=== PATIENT | female | born 1945 | race Caucasian/White ===

== ENCOUNTER → 2017-08-04 | Outpatient (CLI) | payer OTHER, MEDICAID | END | disposition home or self-care (01) | LOC: US 14:32 | PROC: B54DZZZ Ultrasonography of Bilateral Lower Extremity Veins (ICD-10-PCS; principal; 2017-08-04) | DX: M79.89 Other specified soft tissue disorders (principal) ==

== ENCOUNTER 2019-12-12 12:29 | Inpatient (IN) | payer OTHER, MEDICAID ==
[~2019-12-12] VITALS: Ht 165.1 cm; Wt 86.6 kg
[2019-12-12 12:44] VITALS: Ht 165.1 cm; Wt 86.6 kg
[2019-12-12 13:33] LABS: CALCIUM 8.3 mg/dL (8.5-10.1); CARBON DIOXIDE 30.5 mmol/L (21-32); CHLORIDE SERUM 102 mmol/L (98-107); CREATININE SERUM 0.9 mg/dL (0.6-1.0); GLUCOSE SERUM 191 mg/dL (74-106); POTASSIUM SERUM 3.9 mmol/L (3.5-5.1); SODIUM SERUM 140 mmol/L (136-145)
[2019-12-12 13:36] LABS: ALKALINE PHOSPHATASE 58 U/L (46-116); ALT/SGPT 16 U/L (14-59); AST/SGOT 13 U/L (15-37); BILIRUBIN TOTAL 0.4 mg/dL (0.20-1.00); TOTAL PROTEIN, SERUM 6.6 g/dL (6.4-8.2)
[2019-12-12 13:40] LABS: ALBUMIN 3.2 g/dL (3.4-5.0)
[2019-12-12] MEDS ORDERED: PRAVACHOL20 MG PO (13:43)
[2019-12-12] MEDS ORDERED: PRAVASTATIN SOD20 M1 PO (13:46)
[2019-12-12] MEDS ORDERED: CARVEDILOL ER40 MG PO (13:46)
[2019-12-12] MEDS ORDERED: FORTAMET500 M1 PO (13:46)
[2019-12-12] MEDS ORDERED: ZESTORETIC1 TAB PO (13:46)
[2019-12-12 13:58] LABS: PLATELET COUNT 217 x10^3mcL (130-400); RED CELL DISTRIBUTION WIDTH 12.8 % (11.5-14.5)
[2019-12-12 13:59] LABS: BASOPHIL % 0.5 % (0-2)
[2019-12-12 16:23] LABS: MAGNESIUM 1.8 mg/dL (1.8-2.4); PHOSPHOROUS 2.9 mg/dL (2.5-4.9)
[2019-12-12 16:26] LABS: CHOLESTEROL/HDL RATIO 3.4
[2019-12-12 16:30] LABS: FREE T4 0.88 ng/dL (0.76-1.46); FREE THYROXINE INDEX 2.2 ug/dL (1.4-4.5); T3 TOTAL 0.75 ng/mL; T4(THYROXINE) 6.8 ug/dL (4.7-13.3)
[2019-12-12 17:27] LABS: IRON 96 ug/dL (50-170); TOTAL IRON BINDING CAPACITY 283 ug/dL (250-450)
[2019-12-12 19:50] LABS: microscopic required? NO
[2019-12-12 20:10] LABS: urine erythrocyte NEGATIVE (NEGATIVE)
[2019-12-12 20:21] LABS: AMPHETAMINE QUAL UR NONE DETECTED (See below)
[2019-12-12 21:27] VITALS: BP 139/62
[2019-12-13 06:00] VITALS: BP 84/60
[2019-12-13 06:45] LABS: BASOPHIL % 0.6 % (0-2); PLATELET COUNT 183 x10^3mcL (130-400); RED CELL DISTRIBUTION WIDTH 13.2 % (11.5-14.5)
[2019-12-13 06:47] LABS: CALCIUM 7.8 mg/dL (8.5-10.1); CARBON DIOXIDE 30.2 mmol/L (21-32); CHLORIDE SERUM 105 mmol/L (98-107); CREATININE SERUM 0.9 mg/dL (0.6-1.0); GLUCOSE SERUM 156 mg/dL (74-106); PHOSPHOROUS 2.9 mg/dL (2.5-4.9); POTASSIUM SERUM 3.8 mmol/L (3.5-5.1); SODIUM SERUM 141 mmol/L (136-145)
[2019-12-13 08:42] VITALS: BP 104/65
[2019-12-13 12:23] VITALS: BP 102/58
[2019-12-13 16:12] VITALS: BP 101/52
[2019-12-13 20:29] VITALS: BP 106/54
[2019-12-14 05:35] VITALS: BP 133/78
[2019-12-14 06:56] LABS: BASOPHIL % 0.5 % (0-2); PLATELET COUNT 198 x10^3mcL (130-400); RED CELL DISTRIBUTION WIDTH 13.5 % (11.5-14.5)
[2019-12-14 07:43] LABS: CALCIUM 8.5 mg/dL (8.5-10.1); CARBON DIOXIDE 24.4 mmol/L (21-32); CHLORIDE SERUM 107 mmol/L (98-107); CREATININE SERUM 0.8 mg/dL (0.6-1.0); GLUCOSE SERUM 145 mg/dL (74-106); MAGNESIUM 2.4 mg/dL (1.8-2.4); PHOSPHOROUS 2.6 mg/dL (2.5-4.9); POTASSIUM SERUM 3.9 mmol/L (3.5-5.1); SODIUM SERUM 143 mmol/L (136-145)
[2019-12-14 09:18] VITALS: BP 124/63
[2019-12-14 14:00] VITALS: BP 120/63
[2019-12-14 16:51] VITALS: BP 126/56
[2019-12-14 19:37] VITALS: BP 126/56
== END 2019-12-14 21:03 | disposition short-term general hospital (02) | DRG 374 ==
LOC: ED 12:29 → DU 15:48
PROVIDERS: Emergency Medicine; Internal Medicine; Internal Medicine Gastroenterology; ADMIT Family Medicine; ATTEND Family Medicine
PROC: 0DB48ZX Excision of Esophagogastric Junction, Via Natural or Artificial Opening Endoscopic, Diagnostic (ICD-10-PCS; principal; 2019-12-13 09:00)
PROC: 0DJD8ZZ Inspection of Lower Intestinal Tract, Via Natural or Artificial Opening Endoscopic (ICD-10-PCS; 2019-12-14)
PROC: 30233N1 Transfusion of Nonautologous Red Blood Cells into Peripheral Vein, Percutaneous Approach (ICD-10-PCS; 2019-12-14)
DX: C16.0 Malignant neoplasm of cardia (principal); N17.0 Acute kidney failure with tubular necrosis; K92.0 Hematemesis; D62 Acute posthemorrhagic anemia; E44.1 Mild protein-calorie malnutrition; R19.06 Epigastric swelling, mass or lump; G90.9 Disorder of the autonomic nervous system, unspecified; E11.65 Type 2 diabetes mellitus with hyperglycemia; Z79.4 Long term (current) use of insulin; I10 Essential (primary) hypertension; E78.5 Hyperlipidemia, unspecified; E66.9 Obesity, unspecified; Z71.3 Dietary counseling and surveillance; E78.00 Pure hypercholesterolemia, unspecified; E86.0 Dehydration; Z79.899 Other long term (current) drug therapy; Z79.84 Long term (current) use of oral hypoglycemic drugs; E83.51 Hypocalcemia; R55 Syncope and collapse; Z68.31 Body mass index [BMI] 31.0-31.9, adult
CPT/HCPCS: 43235; 45378; 82962; 83880; 84439; 85378; 88344; C9113; G0378; J1200; J1610; J1815; J2250; J2310; J2765; J2916; J3010; J3475; J3490; J7030; J7050; P9016; Q0092; Q0163; Q9967